=== PATIENT | female | born 1950 | race Caucasian/White ===

== ENCOUNTER → 2017-04-24 | Outpatient (CLI) | payer MEDICARE, OTHER | LOC: COL.RAD 13:00 | DX: R13.10 Dysphagia, unspecified (principal); E89.0 Postprocedural hypothyroidism ==

== ENCOUNTER 2020-10-14 06:03 | Day surgery (SDC) | payer MEDICARE, OTHER ==
[2020-10-14] VITALS (287 sets, daily range): BP systolic 104–160; BP diastolic 45–67; PULSE 51–64; TEMP 97.3–97.9; O2SAT 94–100
[~2020-10-14] VITALS: Ht 165.1 cm; Wt 61.4 kg
[2020-10-14] MEDS ORDERED: TOPROL XL 25MG25 MG PO (06:21)
[2020-10-14] MEDS ORDERED: ULTRAM 50MG TAB50 MG PO (06:22)
[2020-10-14] MEDS ORDERED: MOBIC15 MG PO (06:23)
[2020-10-14] MEDS ORDERED: ZOLOFT 50MG50 MG PO (06:23)
[2020-10-14] MEDS ORDERED: ZESTRIL 10MG10 MG PO (06:24)
[2020-10-14] MEDS ORDERED: LIPITOR20 MG PO (06:24)
[2020-10-14] MEDS ORDERED: CALCIUM WITH D31 CTB PO (06:25)
[2020-10-14] MEDS ORDERED: MELATONIN5 M1 PO (06:25)
[2020-10-14] MEDS ORDERED: PROLIA60 MG/ML SQ (06:26)
[2020-10-14] MEDS ORDERED: VITAMINC250CH PO (06:27)
[2020-10-14] MEDS ORDERED: ASPIRIN 81M81 MG/TA2 PO (06:29)
[2020-10-14 07:00] LABS: MEAN CELL VOLUME 90 fl (80.0-100.0); MEAN CORPUSCULAR HEMOGLOBIN 29 pg (27.0-31.0); MEAN CORPUSCULAR HGB CONC 32 g/dl (33.0-37.0); MEAN PLATELET VOLUME 11.1 fl (7.4-10.4); PLATELET COUNT 171 K/mm3 (130-400); RED BLOOD COUNT 4.56 M/mm3 (4.10-5.30); REDCELL DISTRIBUTION WIDTH-CV 12.1 % (11.5-14.5)
[2020-10-14 07:06] LABS: INR 1.1 (0.8-3.0); PROTHROMBIN TIME 12.1 SECONDS (9.7-12.8)
[2020-10-14 07:08] LABS: PARTIAL THROMBOPLASTIN TIME 28.1 SECONDS (26.0-37.0)
[2020-10-14 07:13] LABS: CREATININE, serum 0.58 (0.52-1.25)
[2020-10-14 07:14] LABS: CHOLESTEROL RISK RATIO 2.4
[2020-10-14 07:44] LABS: THYROID STIMULATING HORMONE 0.463 uIU/mL (0.465-4.680)
--- NOTE | 2020-10-14 08:02 | NUR ---
SEE MERGE DOCUMENTATION FOR MEDICATION ADMINISTRATION TIMES AND INTRA/POST PROCEDURE SEDATION ASSESSMENTS. RIGHT HAND BARBEAU TEST POSITIVE.
--- NOTE | 2020-10-14 09:16 | NUR ---
Report received pt to go to ICU for recovery.
--- NOTE | 2020-10-14 10:05 | NUR ---
PATIENT BROUGHT BACK FROM [facility] VIA BED FROM [facility] TO ICU BED 1. PLACED ON MONITORS, VITAL SIGNS STABLE. OK BAND TO RIGHT WRIST. HEMATOMA IN PLACE, AREA SOFT. PATIENT AMBULATED TO BATHROOM WITH ONE ASSIST. DAUGHTER FABIANO AT BEDSIDE. CALL MCKEE WITHIN REACH, WARM BLANKET PROVIDED. WILL CONTINUE TO MONITOR.
--- NOTE | 2020-10-14 10:50 | NUR ---
PATIENT COMPLAINS OF NUMBNESS AND PAIN TO RIGHT WRIST. CAP REFILL SLUGGISH BUT PRESENT. FINGER TIPS COOL TO TOUCH. MADELINE CALLED, ORDERS GIVEN TO RELEASE 2CC FROM [facility], IF IT DOESNT HELP CONTACT EQUIPMENT CLEANER AND TESTER.
--- NOTE | 2020-10-14 11:20 | NUR ---
INSURANCE CHECKER NOTIFIED OF PAIN AND NUMBNESS TO RIGHT HAND, PRESENT AT BEDSIDE TO ASSESS. MADELINE TO PUT IN ORDERS FOR PAIN MEDICATION. WILL CONTINUE TO MONITOR.
--- NOTE | 2020-10-14 14:29 | NUR ---
PATIENT STATES PAIN IS MUCH IMPROVED, NO BLEEDING TO RIGHT RADIAL SITE.
--- NOTE | 2020-10-14 18:00 | NUR ---
REPORT CALLED TO [facility] ON MEDICAL FLOOR. PATIENT TO BE TRANSFERED VIA WHEELCHAIR.
--- NOTE | 2020-10-14 19:00 | NUR ---
Received report from Lizbeth. Patient awake in bed. Daughter at bedside. Denies needs at this time.
--- NOTE | 2020-10-14 20:30 | NUR ---
Assesment done. Patient reports pain on her right radial and forearm, pain score of 5/10. Tylenol given. She complains that her ring and middle finger feels swollen. TR band removed. No bleeding noted. Placed band-aid. Elevated rigth arm with pillow.
--- NOTE | 2020-10-14 21:15 | NUR ---
Dr. Ritchie made his rounds. Informed him about the swelling of the fingers. Patient states she feels much better now and doesn't feel like it's swollen anymore. Dr. Ritchie checked her pulses and it's good. He removed the band-aid.
[2020-10-15 00:26] VITALS: BP 108/50; PULSE 55; TEMP 97.9
[2020-10-15 04:21] VITALS: BP 139/52; PULSE 54; TEMP 98.3
[2020-10-15 04:51] VITALS: BP 139/52; PULSE 54; TEMP 98.3
--- NOTE | 2020-10-15 06:26 | NUR ---
Patient had uneventful night. She states she was able to sleep last night. Right radial site is clean, dry and intact. No swelling noted.
[2020-10-15 07:14] LABS: BASO % 0.5 % (0.0-2.0); EOS # 0.1 (0.0-0.7); EOS % 2.2 % (0-4.0); GRAN # 4.5 (1.4-6.5); GRAN % 71.3 % (42.2-75.2); HEMATOCRIT 39.4 % (37.0-47.0); HEMOGLOBIN 12.5 g/dl (12.5-16.0); LYMPH # 1.1 (1.2-3.4); LYMPH % 16.9 % (20.0-51.0); MEAN CELL VOLUME 92 fl (80.0-100.0); MEAN CORPUSCULAR HEMOGLOBIN 29 pg (27.0-31.0); MEAN CORPUSCULAR HGB CONC 32 g/dl (33.0-37.0); MEAN PLATELET VOLUME 11.4 fl (7.4-10.4); MONO # 0.6 (0.1-0.6); MONO % 8.8 % (1.7-9.3); PLATELET COUNT 160 K/mm3 (130-400); RED BLOOD COUNT 4.29 M/mm3 (4.10-5.30); REDCELL DISTRIBUTION WIDTH-CV 12.3 % (11.5-14.5)
[2020-10-15] MEDS ORDERED: BRILINTA90 MG (07:19)
[2020-10-15] MEDS ORDERED: LIPITOR 40MG TA40 MG PO (07:19)
[2020-10-15 07:22] LABS: CALCIUM 8.7 mg/dL (8.4-10.2); CREATININE, serum 0.53 (0.52-1.25)
--- NOTE | 2020-10-15 07:42 | NUR ---
Patient lying awake in bed at this time. Patient is eager to get home. Does not C/O any pain, discomfort, or further needs at this time. Will continue to monitor. Call light within reach.
--- NOTE | 2020-10-15 10:22 | NUR ---
Patient discharged home. Dr. Ng did discharge education/instruction and DC'd IV. VSS. Escorted from building by Dr. Ng.
== END 2020-10-15 09:00 | disposition home or self-care (01) ==
LOC: COL.CAR 06:03 → ICU 10:19 → MEDICAL 19:15 → COL.CAR 10-15 09:00
PROVIDERS: Internal Medicine Interventional Cardiology; Nurse Practitioner
DX: I25.118 Atherosclerotic heart disease of native coronary artery with other forms of angina pectoris (principal); I10 Essential (primary) hypertension; E78.5 Hyperlipidemia, unspecified; E89.0 Postprocedural hypothyroidism; Z79.890 Hormone replacement therapy; Z79.899 Other long term (current) drug therapy; Z85.3 Personal history of malignant neoplasm of breast; Z83.49 Family history of other endocrine, nutritional and metabolic diseases
CPT/HCPCS: OP; C1725; C1757; C1769; C1874; C1887; C9600; J0583; J1170; J1327; J1644; J2250; J3010; Q9967

== ENCOUNTER → 2020-10-24 | Outpatient (CLI) | payer MEDICARE, OTHER ==
[~2020-10-24] MED LIST: ASPIRIN 81M81 MG/TA2 PO; BRILINTA90 MG; CALCIUM WITH D31 CTB PO; LIPITOR 40MG TA40 MG PO; LIPITOR20 MG PO; MELATONIN5 M1 PO; MOBIC15 MG PO; PLAVIX 75MG TAB75 MG PO; PROLIA60 MG/ML SQ; TOPROL XL 25MG25 MG PO; ULTRAM 50MG TAB50 MG PO; VITAMINC250CH PO; VOLTAREN GEL 1%1 TU TP; ZESTRIL 10MG10 MG PO; ZOLOFT 50MG50 MG PO
== END ==
LOC: COL.RAD 13:16
DX: I97.630 Postprocedural hematoma of a circulatory system organ or structure following a cardiac catheterization (principal)
CPT/HCPCS: Q9967

== ENCOUNTER 2020-11-02 12:56 | Outpatient (CLI) | payer MEDICARE, OTHER ==
[~2020-11-02] VITALS: Ht 165.1 cm; Wt 63.0 kg
[~2020-11-02 12:56] MED LIST changes: -PLAVIX 75MG TAB75 MG PO; -VOLTAREN GEL 1%1 TU TP
[2020-11-02 13:27] VITALS: BP 128/57; PULSE 64; TEMP 98.6
== END 2020-11-02 14:46 | disposition home or self-care (01) ==
LOC: EUO 12:56
DX: M81.0 Age-related osteoporosis without current pathological fracture (principal)
CPT/HCPCS: J0897

== ENCOUNTER 2020-12-05 22:29 | Emergency (ER) | payer MEDICARE, OTHER ==
[~2020-12-05] VITALS: Ht 165.1 cm; Wt 61.4 kg
[2020-12-05 23:20] LABS: BASO % 0.5 % (0.0-2.0); EOS # 0.2 (0.0-0.7); EOS % 1.7 % (0-4.0); GRAN # 5.6 (1.4-6.5); GRAN % 62.9 % (42.2-75.2); HEMATOCRIT 39.4 % (37.0-47.0); HEMOGLOBIN 12.6 g/dl (12.5-16.0); LYMPH # 2.2 (1.2-3.4); LYMPH % 25.2 % (20.0-51.0); MEAN CELL VOLUME 90 fl (80.0-100.0); MEAN CORPUSCULAR HEMOGLOBIN 29 pg (27.0-31.0); MEAN CORPUSCULAR HGB CONC 32 g/dl (33.0-37.0); MEAN PLATELET VOLUME 11.1 fl (7.4-10.4); MONO # 0.8 (0.1-0.6); MONO % 9.2 % (1.7-9.3); PLATELET COUNT 189 K/mm3 (130-400); RED BLOOD COUNT 4.36 M/mm3 (4.10-5.30); REDCELL DISTRIBUTION WIDTH-CV 12.3 % (11.5-14.5)
[2020-12-05 23:27] LABS: ALANINE AMINOTRANSFERASE 25 U/L (4-34); ALBUMIN 3.9 gm/dL (3.5-5.0); ALKALINE PHOSPHATASE 43 U/L (50-136); ANION GAP 4 mmol/L (7-16); AST,SGOT 32 U/L (15-37); BILIRUBIN,TOTAL 0.3 mg/dL (0.0-1.0); BLOOD UREA NITROGEN 21 mg/dL (7-17); CALCIUM 9.5 mg/dL (8.4-10.2); CARBON DIOXIDE 27 mmol/L (22-30); CHLORIDE 105 mmol/L (98-107); CREATININE, serum 0.75 (0.52-1.25); GLUCOSE 107 mg/dL (74-106); POTASSIUM 4.1 mmol/L (3.4-5.0); SODIUM 137 mmol/L (137-145); TOTAL PROTEIN 6.6 gm/dL (6.4-8.2)
[2020-12-05 23:39] LABS: TROPONIN-I < 0.012 ng/mL (0.000-0.035)
[2020-12-06] MEDS ORDERED: PLAVIX 75MG TAB75 MG PO (00:11)
[2020-12-06] MEDS ORDERED: VOLTAREN GEL 1%1 TU TP (00:11)
[2020-12-06 02:52] VITALS: BP 144/70; PULSE 76
== END 2020-12-06 02:52 | disposition home or self-care (01) ==
LOC: COL.ER 22:29
PROVIDERS: Personal Emergency Response Attendant
DX: R07.89 Other chest pain (principal); Z79.899 Other long term (current) drug therapy; Z79.02 Long term (current) use of antithrombotics/antiplatelets; Z95.9 Presence of cardiac and vascular implant and graft, unspecified
CPT/HCPCS: J2270; J2405

== ENCOUNTER → 2021-03-28 | Outpatient (CLI) | payer MEDICARE, OTHER ==
[~2021-03-28] MED LIST changes: +PLAVIX 75MG TAB75 MG PO; +VOLTAREN GEL 1%1 TU TP
[2021-03-28 07:40] LABS: BASO % 0.5 % (0.0-2.0); EOS # 0.1 K/mm3 (0.0-0.7); GRAN # 3.7 K/mm3 (1.4-6.5); GRAN % 64.1 % (42.2-75.2); HEMATOCRIT 43.1 % (37.0-47.0); HEMOGLOBIN 13.9 g/dl (12.5-16.0); LYMPH # 1.5 K/mm3 (1.2-3.4); LYMPH % 25.6 % (20.0-51.0); MEAN CELL VOLUME 91 fl (80.0-100.0); MEAN CORPUSCULAR HEMOGLOBIN 29 pg (27.0-31.0); MEAN CORPUSCULAR HGB CONC 32 g/dl (33.0-37.0); MEAN PLATELET VOLUME 10.5 fl (7.4-10.4); MONO # 0.5 K/mm3 (0.1-0.6); MONO % 8.5 % (1.7-9.3); PLATELET COUNT 177 K/mm3 (130-400); RED BLOOD COUNT 4.75 M/mm3 (4.10-5.30); REDCELL DISTRIBUTION WIDTH-CV 12.2 % (11.5-14.5)
[2021-03-28 07:58] LABS: ALBUMIN 3.9 gm/dL (3.4-4.8); BILIRUBIN,TOTAL 0.7 mg/dL (0.2-1.2); CALCIUM 9.5 mg/dL (8.4-10.2); CHOLESTEROL RISK RATIO 2.7; CREATININE, serum 0.72 mg/dL (0.57-1.11); POTASSIUM 4.3 mmol/L (3.5-4.5)
[2021-03-28 08:17] LABS: MUCOUS Present /lpf; PH 6 (5-8); SQUAMOUS EPITHELIAL 0-2 /hpf; URINE APPEARANCE Cloudy; URINE BACTERIA Many /hpf; URINE BILIRUBIN Negative (NEGATIVE); URINE BLOOD 1+ (NEGATIVE); URINE COLOR Yellow; URINE GLUCOSE Negative (NEGATIVE); URINE KETONE Negative (NEGATIVE); URINE LEUKOCYTE ESTERASE 3+ (NEGATIVE); URINE NITRATE Negative (NEGATIVE); URINE PROTEIN(semi-quant) Negative (NEGATIVE); URINE UROBILINOGEN Negative (NEGATIVE)
[2021-03-28 08:21] LABS: THYROID STIMULATING HORMONE 1.406 uIU/mL (0.350-4.940)
[2021-03-28 09:23] LABS: COLLECTION METHOD CLEAN CATCH
== END ==
LOC: COL.LAB 06:58
PROVIDERS: Family Medicine
DX: E78.5 Hyperlipidemia, unspecified (principal); I10 Essential (primary) hypertension